=== PATIENT | female | born 1960 | race Caucasian/White ===

== ENCOUNTER 2020-03-02 17:51 | Emergency (ER) | payer OTHER ==
--- NOTE | 2020-03-02 17:56 | ERPHSYRPT ---
- History of Present Illness Time Seen by Provider: 03/02/20 17:56 Source: patient Exam Limitations: no limitations Physician History: This is an overweight 59-year-old white female who has had urinary tract infections in the past. Yesterday she noticed some pressure in the suprapubic region as well as some irritation with urination. Those are similar symptoms when compared to prior urinary tract infections. She contacted her primary prescribing physician and received Cipro prescription. Patient is taken 1 pill of her Cipro antibiotic. However, today she began having some left side flank pain and was concerned because she is never had this before. She has not noticed any hematuria. She has no abdominal pain. She has some mild nausea. She is has no chest pain and no shortness of breath. She is had no fevers or chills. She has not had any vomiting or diarrhea. Timing/Duration: yesterday Activites at Onset: none Quality: pressure, other (Irritation feeling with urination) Onset Location: suprapubic (Pressure), left flank Severity of Pain-Max: mild Severity of Pain-Current: mild Prior abdominal problems: none Sexual intercourse history: non-contributory Modifying Factors: Improves With: nothing Associated Symptoms: nausea, dysuria Allergies/Adverse Reactions: lisinopril Allergy (Severe, Verified 03/02/20 18:07) Swelling sulfamethoxazole [From Bactrim] Allergy (Severe, Verified 03/02/20 18:07) Hives trimethoprim [From Bactrim] Allergy (Severe, Verified 03/02/20 18:07) Hives Home Medications: Amlodipine Besylate 5 mg [Norvasc 5 mg] 5 mg PO DAILY 03/02/20 [History] Atorvastatin Calcium [Lipitor] 20 mg PO DAILY 03/02/20 [History] Ciprofloxacin HCl [Cipro] 250 mg PO BID 03/02/20 [History] Esomeprazole Magnesium [Nexium] 20 mg PO DAILY 03/02/20 [History] Fluoxetine HCl 20 mg [Prozac 20 MG] 20 mg PO DAILY 03/02/20 [History] Travel Risk - International Travel Have you traveled outside of the country in past 3 weeks: No - Coronavirus Screening Are you exhibiting any of the following symptoms?: No Close contact with a COVID-19 positive Pt in past 14-21 Days: No - Review of Systems Constitutional: No Symptoms Eyes: No Symptoms Ears, Nose, & Throat: No Symptoms Respiratory: No Symptoms Cardiac: No Symptoms Abdominal/Gastrointestinal: Nausea, No Abdominal Pain, No Vomiting, No Diarrhea Genitourinary Symptoms: Dysuria, Frequency Musculoskeletal: No Symptoms Skin: No Symptoms Neurological: No Symptoms Psychological: No Symptoms Endocrine: No Symptoms Hematologic/Lymphatic: No Symptoms Immunological/Allergic: No Symptoms All Other Systems: Reviewed and Negative - Past Medical History Pertinent Past Medical History: Yes - Past Surgical History Past Surgical History: Yes - Nursing Vital Signs Nursing Vital Signs: Initial Vital Signs Temperature 98.3 F 03/02/20 18:00 Pulse Rate 92 H 03/02/20 18:00 Respiratory Rate 20 03/02/20 18:00 Blood Pressure 176/90 03/02/20 18:00 O2 Sat by Pulse Oximetry 98 03/02/20 18:00 Pain Scale Pain Intensity 5 - Physical Exam General Appearance: no apparent distress, alert, anxiety, obese Eye Exam: PERRL/EOMI, eyes nml inspection Ears, Nose, Throat Exam: normal ENT inspection, moist mucous membranes Neck Exam: normal inspection, non-tender, supple, full range of motion Respiratory Exam: normal breath sounds, lungs clear, airway intact, No chest tenderness, No respiratory distress Cardiovascular Exam: regular rate/rhythm, normal heart sounds, normal peripheral pulses Gastrointestinal/Abdomen Exam: soft, normal bowel sounds, No tenderness, No guar ding, No rebound Pelvic Exam: not done Rectal Exam: not done Back Exam: normal inspection, normal range of motion, CVA tenderness (Left), No vertebral tenderness Extremity Exam: normal inspection, normal range of motion, pelvis stable Neurologic Exam: alert, oriented x 3, cooperative, 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 Skin Exam: normal color, warm, dry Lymphatic Exam: No adenopathy SpO2 Interpretation: normal O2 Delivery: Room Air Ordered Tests: Active Orders 24 hr Category Date Time Status IV Insertion STAT Care 03/02/20 18:36 Active ABDOMEN AND PELVIS W/0 CONTRAS [CT] Stat Exams 03/02/20 18:39 Taken AMYLASE Stat Lab 03/02/20 18:30 Completed CBC W DIFF Stat Lab 03/02/20 18:30 Completed CMP Stat Lab 03/02/20 18:30 Completed LIPASE Stat Lab 03/02/20 18:30 Completed Lactic Acid Stat Lab 03/02/20 18:36 Ordered UA W/RFX UR CULTURE Stat Lab 03/02/20 18:07 Completed Medication Summary Generic Name Dose Route Start Last Admin Trade Name Sumanth PRN Reason Stop Dose Admin Ketorolac Tromethamine 30 mg 03/02/20 19:43 Toradol 30 Mg Injection IV 03/02/20 19:44 STAT ONE Lab/Rad Data: Laboratory Result Diagrams 03/02/20 18:30 03/02/20 18:30 Laboratory Results 03/02/20 03/02/20 03/02/20 Range/Units 18:30 18:30 18:07 WBC 10.8 H (4.0-10.5) K/mm3 RBC 4.72 (4.1-5.4) M/mm3 Hgb 13.0 (12.0-16.0) gm/dl Hct 40.5 (35-47) % MCV 85.8 (78-100) fl MCH 27.5 (26-32) pg MCHC 32.1 (32-36) g/dl RDW 13.9 (11.5-14.0) % Plt Count 308 (150-450) K/mm3 MPV 9.8 (7.5-11.0) fl Gran % 69.2 H (36.0-66.0) % Eos # (Auto) 0.29 (0-0.5) Absolute Lymphs (auto) 2.32 (1.0-4.6) Absolute Monos (auto) 0.65 (0.0-1.3) Lymphocytes % 21.5 L (24.0-44.0) % Monocytes % 6.0 (0.0-12.0) % Eosinophils % 2.7 (0.00-5.0) % Basophils % 0.6 (0.0-0.4) % Absolute Granulocytes 7.47 H (1.4-6.9) Basophils # 0.07 (0-0.4) Sodium 137 (137-145) mmol/L Potassium 4.0 (3.5-5.1) mmol/L Chloride 103 (98-107) mmol/L Carbon Dioxide 27 (22-30) mmol/L Anion Gap 10.6 (5-15) MEQ/L BUN 20 H (7-17) mg/dL Creatinine 0.66 (0.52-1.04) mg/dL Estimated GFR > 60.0 ML/MIN Glucose 106 (74-106) mg/dL Calcium 10.1 (8.4-10.2) mg/dL Total Bilirubin 0.30 (0.2-1.3) mg/dL AST 25 (14-36) U/L ALT 26 (0-35) U/L Alkaline Phosphatase 136 H (38-126) U/L Serum Total Protein 7.4 (6.3-8.2) g/dL Albumin 4.2 (3.5-5.0) g/dL Amylase 67 (30-110) U/L Lipase 98 (23-300) U/L Urine Color STRAW (YELLOW) Urine Appearance CLEAR (CLEAR) Urine pH 7.0 (5-6) Ur Specific [place] 1.008 (1.005-1.025) Urine Protein NEGATIVE (Negative) Urine Ketones NEGATIVE (NEGATIVE) Urine Blood NEGATIVE (0-5) Min/ul Urine Nitrite NEGATIVE (NEGATIVE) Urine Bilirubin NEGATIVE (NEGATIVE) Urine Urobilinogen NEGATIVE (0-1) mg/dL Ur Leukocyte Esterase NEGATIVE (NEGATIVE) Urine WBC (Auto) NONE (0-5) /HPF Urine RBC (Auto) 3-5 (0-2) /HPF U Epithel Cells (Auto) NONE (FEW) /HPF Urine Bacteria (Auto) NONE (NEGATIVE) /HPF Urine Culture Reflexed NO (NO) Urine Glucose NEGATIVE (NEGATIVE) mg/dL - Progress Progress: improved, re-examined Air Movement: good Progress Note: 03/02/20 19:44 CAT scan of the abdomen and pelvis with no contrast reveals a 1 to 2 mm left UVJ calculus with minimal left ureteral prominence and minimal hydronephrosis. There are 2 right-sided renal and 1 the left renal micro calculi present. Blood Culture(s) Obtained: No Antibiotics given: No Counseled pt/family regarding: lab results, diagnosis, need for follow-up, rad results - Departure Departure Disposition: Home Clinical Impression: Left ureteral calculus Condition: Stable Critical Care Time: No Referrals: DOCTOR,NO FAMILY [Primary Care Provider] - Additional Instructions: Drink plenty of fluids. Take ibuprofen 600 mg orally with food 3 times a day for the next 4 days. Return to the emergency department if symptoms worsen. Prescriptions: Hydrocodone/APAP 5/325 [[place] 5/325 mg] 1 each PO Q8H PRN PRN #6 tablet MDD 3 PRN Reason: Pain
[2020-03-02 18:26] LABS: Appearance CLEAR (CLEAR); Bilirubin NEGATIVE (NEGATIVE); Blood NEGATIVE Ery/ul (0-5); Glucose NEGATIVE (NEGATIVE); Ketones NEGATIVE (NEGATIVE); Leukocyte Esterase NEGATIVE (NEGATIVE); Nitrite NEGATIVE (NEGATIVE); Protein,Urine Dip NEGATIVE (Negative); Specific Gravity 1.008 (1.005-1.025); Urobilinogen NEGATIVE mg/dL (0-1)
[2020-03-02 18:46] LABS: Absolute Neutrophil Ct (ANC) 7.47 (1.4-6.9); BASOPHIL % 0.6 % (0.0-0.4); Basophil (Absolute #) 0.07 (0-0.4); Eosinophil % 2.7 % (0.00-5.0); Eosinophil (Absolute #) 0.29 (0-0.5); Hematocrit 40.5 % (35-47); Lymphocyte (Absolute #) 2.32 (1.0-4.6); Lymphocytes % 21.5 % (24.0-44.0); Mean Cell Volume 85.8 fl (78-100); Mean Corpuscular Hemoglobin 27.5 pg (26-32); Mean Corpuscular Hgb Concent. 32.1 g/dl (32-36); Mean Platelet Volume 9.8 fl (7.5-11.0); Monocyte (Absolute #) 0.65 (0.0-1.3); Neutrophil % 69.2 % (36.0-66.0); Platelet Count 308 K/mm3 (150-450); Red Blood Count 4.72 M/mm3 (4.1-5.4); Red Cell Distribution Width 13.9 % (11.5-14.0); White Blood Count 10.8 K/mm3 (4.0-10.5)
[2020-03-02 18:52] LABS: ALBUMIN 4.2 g/dL (3.5-5.0); ALKALINE PHOSPHATASE 136 U/L (38-126); AMYLASE 67 U/L (30-110); ANION GAP 10.6 MEQ/L (5-15); BLOOD UREA NITROGEN 20 mg/dL (7-17); CHLORIDE 103 mmol/L (98-107); Calcium 10.1 mg/dL (8.4-10.2); Carbon Dioxide 27 mmol/L (22-30); Creatinine 1 0.66 mg/dL (0.52-1.04); EST GLOMERULAR FILTRATION RATE > 60.0 ML/MIN; Glucose 106 mg/dL (74-106); LIPASE 98 U/L (23-300); SGOT/AST 25 U/L (14-36); SGPT/ALT 26 U/L (0-35); SODIUM 137 mmol/L (137-145); Total Protein 7.4 g/dL (6.3-8.2)
[2020-03-02] MEDS ORDERED: Zofran 4 MG/2 ML VIAL IV ONE (19:43)
[2020-03-02] MEDS ORDERED: Hydromorphone 1 mg/ml Injection IV ONE (19:43)
[2020-03-02] MEDS ORDERED: TORAdol 30 mg Injection IV ONE (19:43)
[2020-03-02] MEDS ORDERED: Zofran 4 MG/2 ML VIAL ONE (19:48)
[2020-03-02] MEDS ORDERED: TORAdol 30 mg Injection ONE (19:49)
[2020-03-02] MEDS ORDERED: Hydromorphone 1 mg/ml Injection ONE (19:50)
[2020-03-02 20:17] VITALS: BP 145/82
[2020-03-02 20:46] VITALS: PULSE 91; O2SAT 93
--- NOTE | 2020-03-03 08:11 | XRAY ---
Indication: Left flank pain. Multiple contiguous axial images obtained through the abdomen and pelvis without contrast using renal stone protocol. Comparison: None Lung bases demonstrates incompletely visualized posterior left lower lobe irregular noncalcified masslike opacity measuring at least 2.1 x 2.8 x 3.6 cm with spiculated margins concerning for malignancy. Right lower lobe demonstrates a 1.1 x 0.8 cm noncalcified nodule that may or may not be related. No infiltrate or effusion. Heart is not enlarged. Small hiatal hernia. There is a 1-2 mm left UVJ calculus. Proximal left ureter is minimally prominent and there is minimal hydronephrosis consistent with partial obstructive uropathy. Right kidney demonstrates 2 and left kidney demonstrates 1 micro-calculi, largest on the left measuring 6-7 mm. No free fluid/air. Noncontrasted stomach and bowel loops appear nonobstructed. Mild diffuse scattered colonic diverticulosis without diverticulitis. Remaining liver, gallbladder, pancreas, spleen, adrenal glands, kidneys, ureters, bladder, and uterus appear unremarkable for noncontrast exam. Minimal aortic calcifications including both main renal arteries. No AAA. Osseous structures intact with minimal degenerative changes throughout the spine. Impression: 1. 1-2 mm left UVJ calculus producing partial obstruction as detailed. Additional bilateral renal micro-calculi. 2. Colonic diverticulosis and small hiatal hernia. 3. Incompletely visualized left lower lobe masslike opacity worrisome for malignancy. Additional right lower lobe indeterminate noncalcified nodule. CT chest with contrast exam may yield further information.
== END 2020-03-02 20:46 | disposition home or self-care (01) ==
LOC: ED 17:51
DX: N20.1 Calculus of ureter (principal); R10.9 Unspecified abdominal pain; R11.0 Nausea; R30.0 Dysuria; Z79.899 Other long term (current) drug therapy
CPT/HCPCS: 36000; 36415; 74176; 80053; 81001; 82150; 83605; 83690; 85025; 96374; 96375; 99284; J1170; J1885; J2405

== ENCOUNTER 2021-12-17 01:29 | Emergency (ER) | payer OTHER ==
--- NOTE | 2021-12-17 02:46 | ERPHSYRPT ---
- History of Present Illness Time Seen by Provider: 12/17/21 01:45 Source: patient Exam Limitations: no limitations Patient Subjective Stated Complaint: pt states that she is having shootong pain that goes down left arm after injuring her back last month. pt states she just finished her steroid that was prescibed and her cyclobenzaprine she last took yesterday AM Triage Nursing Assessment: pt is alert and oriented, states painin r arm, 09/25 Physician History: This is a 61-year-old white female patient who has had upper back pain described as a burning sharp pain that is been present for over a month. Prior to that, approximately 5 years prior to that, the patient had fallen and injured her back. Patient tends to fall frequently. She presents with pain that shoots from her lower neck and upper thoracic spine area that shoots down into her right shoulder right arm down to her fingers on the right side. She had been placed on steroids and she completed the steroid treatment. She also was placed on Flexeril and she has a couple of those pills left. This morning, she said the pain suddenly got worse. Overall, she said that the treatment that she was given has helped. Patient did not suffer any new traumatic injury. She is not short of breath and she has no chest pain. Timing/Duration: other (Symptoms for at least a month) Method of Injury: unknown Quality: burning, radiating, sharp Back Pain Location: C-spine (Radiates down right shoulder down to her fingers on the right hand), T-spine Severity of Pain-Max: mild (To moderate) Severity of Pain-Current: mild (To moderate) Modifying Factors: Improves With: movement Associated Symptoms: muscle spasms, other (Sharp shooting burning pain down right shoulder into her right hand) Previous symptoms: same symptoms as today Allergies/Adverse Reactions: lisinopril Allergy (Severe, Verified 03/02/20 18:07) Swelling sulfamethoxazole [From Bactrim] Allergy (Severe, Verified 03/02/20 18:07) Hives trimethoprim [From Bactrim] Allergy (Severe, Verified 03/02/20 18:07) Hives Home Medications: Amlodipine Besylate 5 mg [Norvasc 5 mg] 5 mg PO DAILY 03/02/20 [History] Atorvastatin Calcium [Lipitor] 20 mg PO DAILY 03/02/20 [History] Ciprofloxacin HCl [Cipro] 250 mg PO BID 03/02/20 [History] Esomeprazole Magnesium [Nexium] 20 mg PO DAILY 03/02/20 [History] Fluoxetine HCl 20 mg [Prozac 20 MG] 20 mg PO DAILY 03/02/20 [History] Hx Tetanus, Diphtheria Vaccination/Date Given: No Hx Influenza Vaccination/Date Given: No Hx Pneumococcal Vaccination/Date Given: No Travel Risk - International Travel Have you traveled outside of the country in past 3 weeks: No - Coronavirus Screening Are you exhibiting any of the following symptoms?: No Close contact with a COVID-19 positive Pt in past 14-21 Days: No - Vaccine Status Have you recieved a Covid-19 vaccination: Yes 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 - Vaccination Dates Date of 2cond Vaccination (if applicable): unknown - Review of Systems Constitutional: No Symptoms Eyes: No Symptoms Ears, Nose, & Throat: No Symptoms Respiratory: No Symptoms Cardiac: No Symptoms Abdominal/Gastrointestinal: No Symptoms Genitourinary Symptoms: No Symptoms Musculoskeletal: Neck Pain, Joint Pain Skin: No Symptoms Neurological: Other (Sharp shooting burning pain down from base of neck to right shoulder down right arm to right hand and fingers) Psychological: No Symptoms Endocrine: No Symptoms Hematologic/Lymphatic: No Symptoms Immunological/Allergic: No Symptoms All Other Systems: Reviewed and Negative - Past Medical History Pertinent Past Medical History: Yes Neurological History: Migraines ENT History: No Pertinent History Cardiac History: High Cholesterol, Hypertension Respiratory History: No Pertinent History Endocrine Medical History: No Pertinent History Musculoskeletal History: Arthritis GI Medical History: Diverticulitis, GERD History: No Pertinent History Psycho-Social History: Depression Female Reproductive Disorders: No Pertinent History - Past Surgical History Past Surgical History: Yes Other Surgical History: left wrist. tonsils. adnoids - Social History Smoking Status: Never smoker Exposure to second hand smoke: No Drug Use: none Patient Lives Alone: No - Nursing Vital Signs Nursing Vital Signs: Initial Vital Signs Temperature 97.7 F 12/17/21 01:31 Pulse Rate 81 12/17/21 01:31 Respiratory Rate 18 12/17/21 01:31 Blood Pressure 123/72 12/17/21 01:31 O2 Sat by Pulse Oximetry 98 12/17/21 01:31 Pain Scale Pain Intensity 8 - Physical Exam General Appearance: no apparent distress, alert, anxiety Eye Exam: PERRL/EOMI, eyes nml inspection Ears, Nose, Throat Exam: normal ENT inspection, moist mucous membranes Neck Exam: normal inspection, non-tender, supple, full range of motion Respiratory Exam: normal breath sounds, lungs clear, airway intact, No chest tenderness, No respiratory distress Cardiovascular Exam: regular rate/rhythm, normal heart sounds, normal peripheral pulses Gastrointestinal Exam: soft, normal bowel sounds, No tenderness Pelvic Exam: not done Rectal Exam: not done Back Exam: normal inspection, normal range of motion, No CVA tenderness, No vertebral tenderness Extremity Exam: normal inspection, normal range of motion, pelvis stable Neurologic Exam: alert, oriented x 3, cooperative, 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 12/17/21 03:13 Counseled pt/family regarding: diagnosis, need for follow-up, rad results - Departure Departure Disposition: Home Clinical Impression: Degenerative arthritis of cervical spine Condition: Stable Critical Care Time: No Referrals: Provider,Unknown [Primary Care Provider] - Follow up/PCP as directed Additional Instructions: Take your medication as prescribed. Call your primary care provider today to make arrangements for follow-up appointment for further evaluation, management and testing. Stop your Flexeril Prescriptions: Orphenadrine Citrate 100 mg [Norflex 100 MG Tablet] 100 mg PO BID #10 tab
[2021-12-17] MEDS ORDERED: Sterile H2O 10 ml IJ ONE (03:21)
[2021-12-17] MEDS ORDERED: Norflex 60 MG/2 ML ONE (03:22)
[2021-12-17] MEDS ORDERED: NORCO 5/325 MG ONE (03:22)
[2021-12-17] MEDS ORDERED: solu-MEDROL ONE (03:22)
[2021-12-17] MEDS: solu-MEDROL 125 MG, Sterile H2O 10 ml 2 ML IM ONE ×2 (03:23)
[2021-12-17] MEDS: Norflex 60 MG/2 ML IM ONE (03:23)
[2021-12-17] MEDS: NORCO 5/325 MG PO ONE ×2 (03:24)
[2021-12-17 03:40] VITALS: BP 125/59; PULSE 70; O2SAT 95
--- NOTE | 2021-12-17 09:00 | XRAY ---
Indication: Pain following fall. Comparison: None 4 view cervical spine demonstrates mild lordotic reversal positional versus paraspinal spasm and mild dextroscoliosis. Minimal/mild C3-C6 degenerative changes. No other bony, articular, or soft tissue abnormalities.
--- NOTE | 2021-12-17 09:05 | XRAY ---
Indication: Pain following fall. Comparison: None AP/lateral thoracic spine demonstrates 12 rib-bearing segments with mild levoscoliosis centered at T3 and minimal/mild multilevel degenerative endplate spurring. There is 5.4 x 4.9 cm left infrahilar masslike opacity better evaluated with CT. Also incidental tiny bilateral renal calculi largest 5 mm on left. Comment: Left lung masslike opacity not reported by interpreting ER clinician. Telephone report was given to Dr. Stockton at 0900 hrs. on December 17, 2021.
== END 2021-12-17 03:40 | disposition home or self-care (01) ==
LOC: ED 01:29
DX: M47.812 Spondylosis without myelopathy or radiculopathy, cervical region (principal); M54.2 Cervicalgia; M54.6 Pain in thoracic spine; M79.601 Pain in right arm; E78.5 Hyperlipidemia, unspecified; I10 Essential (primary) hypertension; Z79.899 Other long term (current) drug therapy
CPT/HCPCS: 72040; 72072; 96372; 99283; J2360; J2930; A9270-GY